=== PATIENT | female | born 1990 | race Caucasian/White ===

== ENCOUNTER 2018-03-03 10:36 | Inpatient (IN) | payer BC ==
[2018-03-03] VITALS (23 sets, daily range): BP systolic 102–158; BP diastolic 63–105
[~2018-03-03] VITALS: Ht 170.2 cm; Wt 109.1 kg
[2018-03-03] MEDS ORDERED: SYNTHROID100 MCG PO (11:20)
[2018-03-03] MEDS ORDERED: PRENATAL TABLE1 EAC3 PO (11:20)
[2018-03-03 12:21] LABS: BASOPHIL (%) 0.2 % (0-1); EOSINOPHIL (%) 0 % (0-5); HEMATOCRIT 35.3 % (36.0-46.0); HEMOGLOBIN 12.2 G/DL (11.9-15.5); IMMATURE GRANULOCYTE (%) 0.7 % (0.0-0.7); LYMPHOCYTE (%) 14.4 % (15-42); LYMPHOCYTE COUNT 1.5 K/uL (1.0-2.8); MCH 28.6 PG (29.0-34.0); MCHC 34.6 G/DL (30.0-36.0); MCV 82.9 FL (83-99); MONOCYTE COUNT 0.6 K/uL (0-0.8); NEUTROPHIL (%) 78.7 % (45-76); NEUTROPHIL COUNT 8.3 K/uL (1.8-6.4); PLATELET COUNT 280 K/uL (156-360); RBC DIS.WIDTH-CV 12.8 % (11.8-14.6); RBC DIS.WIDTH-SD 38.1 % (39-53); RED BLOOD COUNT 4.26 M/uL (3.80-5.20); WHITE BLOOD COUNT 10.6 K/uL (4.1-10.2)
[2018-03-03 12:28] LABS: AMPHETAMINE NEGATIVE (500 ng/mL); BARBITURATES NEGATIVE (200 ng/mL); BENZODIAZEPINES NEGATIVE (150 ng/mL); BUPRENORPHINE NEGATIVE (10 ng/mL); COCAINE NEGATIVE (150 ng/mL); METHADONE NEGATIVE (200 ng/mL); METHAMPHETAMINE NEGATIVE (500 ng/mL); OPIATES (MORPHINE) NEGATIVE (100 ng/mL); OXYCODONE NEGATIVE (100 ng/mL); PHENCYCLIDINE NEGATIVE (25 ng/mL); PROPOXYPHENE NEGATIVE (300 ng/mL); THC CANNABINOIDS NEGATIVE (50 ng/mL); TRICYCLIC ANTIDEPRESSANTS NEGATIVE (300 ng/mL)
[2018-03-04] VITALS (24 sets, daily range): BP systolic 92–165; BP diastolic 56–99
[2018-03-04] MEDS ORDERED: IBUPROFEN800 MG PO (16:06)
[2018-03-04 19:02] LABS: UR CREATININE CONCENTRATION 234.8 MG/DL
[2018-03-05 05:43] LABS: BASOPHIL (%) 0.1 % (0-1); EOSINOPHIL (%) 0 % (0-5); HEMATOCRIT 22.2 % (36.0-46.0); LYMPHOCYTE (%) 13.4 % (15-42); LYMPHOCYTE COUNT 2.4 K/uL (1.0-2.8); MCHC 34.2 G/DL (30.0-36.0); MCV 84.7 FL (83-99); MONOCYTE COUNT 1.3 K/uL (0-0.8); NEUTROPHIL (%) 78.5 % (45-76); NEUTROPHIL COUNT 14.2 K/uL (1.8-6.4); PLATELET COUNT 212 K/uL (156-360); RBC DIS.WIDTH-CV 13.3 % (11.8-14.6); WHITE BLOOD COUNT 18.1 K/uL (4.1-10.2)
[2018-03-05 05:44] LABS: HEMOGLOBIN 7.6 G/DL (11.9-15.5); RED BLOOD COUNT 2.62 M/uL (3.80-5.20)
[2018-03-05 06:03] LABS: ALBUMIN 2.5 G/DL (3.2-4.8); ALKALINE PHOSPHATASE 106 IU/L (3-129); ALT (GPT) 9 IU/L (3-49); AST (GOT) 26 IU/L (2-34); CHLORIDE 108 MEQ/L (99-109); GFR ESTIMATE (CALCULATED) > 59 mL/min/; GLUCOSE 86 mg/dL (70-99); POTASSIUM 4.1 MEQ/L (3.7-5.4); SODIUM 138 MEQ/L (136-147); TOTAL BILIRUBIN 0.3 MG/DL (0.0-1.0); TOTAL PROTEIN 4.6 G/DL (6.4-8.3); UREA NITROGEN (BUN) 17 mg/dL (9-23)
[2018-03-05 07:39] VITALS: BP 120/63
[2018-03-05 15:55] VITALS: BP 118/74
[2018-03-06 06:25] LABS: ALBUMIN 2.5 G/DL (3.2-4.8); ALT (GPT) 17 IU/L (3-49); AST (GOT) 30 IU/L (2-34); CHLORIDE 110 MEQ/L (99-109); CREATININE 0.7 MG/DL (0.6-1.3); GFR ESTIMATE (CALCULATED) > 59 mL/min/; GLUCOSE 88 mg/dL (70-99); POTASSIUM 3.9 MEQ/L (3.7-5.4); SODIUM 140 MEQ/L (136-147); TOTAL PROTEIN 4.8 G/DL (6.4-8.3); UREA NITROGEN (BUN) 15 mg/dL (9-23)
[2018-03-06 06:27] LABS: ALKALINE PHOSPHATASE 155 IU/L (3-129)
[2018-03-06 06:37] LABS: TOTAL BILIRUBIN 0.2 MG/DL (0.0-1.0)
[2018-03-06 07:20] VITALS: BP 141/81
== END 2018-03-06 12:50 | disposition home or self-care (01) | DRG 774 ==
LOC: LDRP-OP → 2WEST 10:37 → LDRP-OP 04-16 08:58
PROVIDERS: Midwife; Obstetrics & Gynecology; Obstetrics & Gynecology Obstetrics
DX: O12.04 Gestational edema, complicating childbirth (principal); O70.1 Second degree perineal laceration during delivery; O72.1 Other immediate postpartum hemorrhage; O63.1 Prolonged second stage (of labor); O42.02 Full-term premature rupture of membranes, onset of labor within 24 hours of rupture; O75.81 Maternal exhaustion complicating labor and delivery; O99.02 Anemia complicating childbirth; D62 Acute posthemorrhagic anemia; O99.284 Endocrine, nutritional and metabolic diseases complicating childbirth; E03.9 Hypothyroidism, unspecified; Z3A.38 38 weeks gestation of pregnancy; Z37.0 Single live birth
CPT/HCPCS: 80053; 82570; 84156; 85025; C1755; G0378; J0595; J2795; J3010; J7120